=== PATIENT | male | born 1960 | race American Indian/Alaskan Native ===

== ENCOUNTER 2020-12-31 13:29 | Emergency (ER) | payer MEDICARE ==
[2020-12-31 14:32] LABS: Basophils # (Auto) 0.1 K/mm3 (0.0-0.1); Basophils % (Auto) 0.7 % (0.0-1.8); Eosinophils # (Auto) 0.2 K/mm3 (0.0-0.4); Hematocrit 42.5 % (35.5-45.6); Lymphocytes # (Auto) 2.6 K/mm3 (1.2-5.4); Lymphocytes % (Auto) 23.5 % (13.4-35.0); Mean Corpuscular HGB Conc 33 % (32-34); Mean Corpuscular Volume 88 fl (84-94); Monocytes # (Auto) 0.7 K/mm3 (0.0-0.8); Monocytes % (Auto) 6.8 % (0.0-7.3); Platelet Count 247 K/mm3 (140-440); Red Blood Count 4.83 M/mm3 (3.65-5.03); Red Cell Distribution Width 13.5 % (13.2-15.2)
[2020-12-31 14:46] LABS: Blood Urea Nitrogen 10 mg/dL (9-20); Calcium 8.7 mg/dL (8.4-10.2); Hemolysis Index 2
--- NOTE | 2020-12-31 14:53 | XRay Report ---
XR chest 1V ap INDICATION / CLINICAL INFORMATION: chest pain. COMPARISON: 11/22/2014 FINDINGS: SUPPORT DEVICES: None. HEART /PULMONARY VASCULATURE: No significant abnormality. LUNGS / PLEURA: No significant pulmonary or pleural abnormality. No pneumothorax. ADDITIONAL FINDINGS: No significant additional findings. IMPRESSION: 1. No acute findings. Signer Name: Gómez Reilly MD Signed: 12/31/2020 2:49 PM Workstation Name: [id number]
--- NOTE | 2020-12-31 14:56 | Emergency Department Report ---
ED Dizziness HPI - General Chief Complaint: Dizziness Stated Complaint: DIZZY Time Seen by Provider: 12/31/20 13:59 Source: patient Mode of arrival: Ambulatory Limitations: No Limitations - History of Present Illness Initial Comments: Chief complaint: I was dizzy this morning nontoxic my insulin." HPI: This is a 60-year-old male with history of insulin-dependent diabetes, hepatitis C, hypertension, CAD who presents with dizziness and feeling "funny" in chest. Patient had dizziness this morning. [place] lightheaded. Lasted about 30 minutes until he took his insulin. He does not take his blood sugar readings on a regular basis. He did not know how high his blood sugar was. He admits to noncompliance with diabetic diet. Patient denies any pain. However he informed triage nurse that he felt "funny" in his chest. He is currently symptom-free. MD Complaint: dizziness, lightheadedness -: Gradual, This morning Timing: gradual onset Description: lightheadedness History of Same: No History of Trauma: No Severity: mild Improves With: medication (Insulin) Worsens With: nothing - Related Data Previous Rx's Medication Instructions Recorded Last Taken Type Azithromycin [Zithromax Z-PRADEEP] 250 mg PO DAILY #6 tablet 04/22/15 Unknown Rx Benzonatate [Tessalon Perles] 100 mg PO Q8HR #20 capsule 04/22/15 Unknown Rx guaiFENesin/CODEINE [Robitussin AC] 5 ml PO HS 7 Days oral.liqd 04/22/15 Unknown Rx Indomethacin [Indocin] 25 mg PO TID #15 capsule 07/13/15 Unknown Rx Allergies Allergy/AdvReac Type Severity Reaction Status Date / Time No Known Allergies Allergy Unverified 04/22/15 12:26 ED Review of Systems ROS: Stated complaint: DIZZY Other details as noted in HPI Comment: All other systems reviewed and negative Constitutional: denies: fever, malaise Respiratory: denies: cough, shortness of breath Cardiovascular: denies: chest pain Gastrointestinal: denies: abdominal pain, vomiting ED Past Medical Hx - Past Medical History Hx Hypertension: Yes Hx Diabetes: Yes Hx Liver Disease: Yes (Hep c) Additional medical history: Coronary artery disease - Surgical History Additional Surgical History: "knee surgery". Heart surgery - Social History Smoking Status: Current Every Day Smoker - Medications Home Medications: Home Medications Medication Instructions Recorded Confirmed Last Taken Type Azithromycin [Zithromax Z-PRADEEP] 250 mg PO DAILY #6 tablet 04/22/15 Unknown Rx Benzonatate [Tessalon Perles] 100 mg PO Q8HR #20 capsule 04/22/15 Unknown Rx guaiFENesin/CODEINE [Robitussin AC] 5 ml PO HS 7 Days oral.liqd 04/22/15 Unknown Rx Indomethacin [Indocin] 25 mg PO TID #15 capsule 07/13/15 Unknown Rx ED Physical Exam - General Limitations: No Limitations General appearance: alert, in no apparent distress - Head Head exam: Present: atraumatic, normocephalic - Eye Eye exam: Present: normal appearance - ENT ENT exam: Present: mucous membranes moist - Neck Neck exam: Present: normal inspection, full ROM - Respiratory Respiratory exam: Present: normal lung sounds bilaterally. Absent: respiratory distress, wheezes, rales, rhonchi - Cardiovascular Cardiovascular Exam: Present: regular rate, normal rhythm, normal heart sounds. Absent: systolic murmur, diastolic murmur, rubs, gallop - GI/Abdominal GI/Abdominal exam: Present: soft, normal bowel sounds. Absent: distended, tenderness, guarding, rebound - Rectal Rectal exam: Present: deferred - Extremities Exam Extremities exam: Present: normal inspection - Back Exam Back exam: Present: normal inspection - Neurological Exam Neurological exam: Present: alert, oriented X3 - Psychiatric Psychiatric exam: Present: normal affect, normal mood - Skin Skin exam: Present: warm, dry, intact, normal color. Absent: rash ED Course Vital Signs 12/31/20 12/31/20 12/31/20 13:47 15:37 15:45 Temperature 98.1 F Pulse Rate 87 Respiratory 18 Rate Blood Pressure 155/70 142/56 O2 Sat by Pulse 100 97 98 Oximetry 12/31/20 12/31/20 16:01 16:15 Temperature Pulse Rate Respiratory Rate Blood Pressure 142/56 129/55 O2 Sat by Pulse 99 97 Oximetry ED Medical Decision Making - Lab Data Result diagrams: 12/31/20 14:13 12/31/20 14:13 Laboratory Results - last 24 hr 12/31/20 12/31/20 12/31/20 14:13 14:13 14:13 WBC 10.9 RBC 4.83 Hgb 14.0 Hct 42.5 MCV 88 MCH 29 MCHC 33 RDW 13.5 Plt Count 247 Lymph % (Auto) 23.5 [place] % (Auto) 6.8 Eos % (Auto) 2.0 Baso % (Auto) 0.7 Lymph # (Auto) 2.6 [place] # (Auto) 0.7 Eos # (Auto) 0.2 Baso # (Auto) 0.1 Seg Neutrophils % 67.0 Seg Neutrophils # 7.3 Sodium 134 L Potassium 3.8 Chloride 99.1 Carbon Dioxide 27 Anion Gap 12 BUN 10 Creatinine 0.7 L Estimated GFR > 60 BUN/Creatinine Ratio 14 Glucose 272 H Calcium 8.7 Troponin T < 0.010 12/31/20 15:50 WBC RBC Hgb Hct MCV MCH MCHC RDW Plt Count Lymph % (Auto) [place] % (Auto) Eos % (Auto) Baso % (Auto) Lymph # (Auto) [place] # (Auto) Eos # (Auto) Baso # (Auto) Seg Neutrophils % Seg Neutrophils # Sodium Potassium Chloride Carbon Dioxide Anion Gap BUN Creatinine Estimated GFR BUN/Creatinine Ratio Glucose Calcium Troponin T < 0.010 - EKG Data -: EKG Interpreted by Sd EKG shows normal: sinus rhythm, axis, intervals, QRS complexes, ST-T waves Rate: normal - EKG Data Interpretation: normal EKG 12/31/20 15:19 EKG obtained EKG interpreted by sd Normal sinus rhythm normal rate normal axis normal intervals no ST elevation no ST-T signs of ischemia normal EKG rate 80 bpm - Radiology Data Radiology results: report reviewed CBC chemistry within normal limits with exception of glucose 272 no evidence of DKA - Medical Decision Making 1. Dizziness lightheadedness for 30 minutes: No evidence of anemia or ACS. Hyperglycemia could be etiology since patient symptoms improved with insulin. No indication of CVA. 2. According to review of triage documentation patient felt "funny" in his chest. He denies chest pain. Heart score 3, I do not suspect acute coronary syndrome. Patient had troponin x 2. EKG normal. Patient referred to [facility] for outpatient cardiac follow-up. Patient has been symptom-free throughout his 4-hour ED observation period. On upon reassessment at discharge he is sleeping comfortably. I have faxed cardiology referral request to [facility]. Critical care attestation.: If time is entered above; I have spent that time in minutes in the direct care of this critically ill patient, excluding procedure time. ED Disposition Clinical Impression: Lightheadedness, Chest discomfort, Insulin dependent diabetes mellitus Disposition: - TO HOME OR SELFCARE Is pt being admited?: No Does the pt Need Aspirin: No Condition: Stable Instructions: Diabetes Mellitus Type 2 in Adults (ED), Dizziness, [id number] Referrals: DESMOND UDMONT MD [Staff Physician] - 3-5 Days HEART Score - HEART Score History: Slightly suspicious EKG: Normal Age: 45-65 Risk factors: > 3 risk factors or hx of atherosclerotic disease Troponin: Troponin T < 0.010 ng/mL (0.00-0.029) 12/31/20 15:50 Troponin: < normal limit HEART Score: 3
[2020-12-31 14:59] LABS: BUN/Creatinine Ratio 14
[2020-12-31 18:03] VITALS: BP 128/56
== END 2020-12-31 18:14 | disposition home or self-care (01) ==
LOC: ED 13:29
DX: R42 Dizziness and giddiness (principal); R07.89 Other chest pain; I10 Essential (primary) hypertension; E11.9 Type 2 diabetes mellitus without complications; F17.200 Nicotine dependence, unspecified, uncomplicated; Z79.4 Long term (current) use of insulin; Z98.890 Other specified postprocedural states; Z79.2 Long term (current) use of antibiotics; Z79.899 Other long term (current) drug therapy
CPT/HCPCS: 36415; 71045; 80048; 84484; 85025; 93005

== ENCOUNTER 2021-05-16 11:30 | Emergency (ER) | payer MEDICARE ==
--- NOTE | 2021-05-16 12:48 | Emergency Department Report ---
ED Back Pain/Injury HPI - General Chief Complaint: Back Pain/Injury Stated Complaint: BACK PAIN Time Seen by Provider: 05/16/21 12:44 Source: patient, EMS Limitations: No Limitations - History of Present Illness Initial Comments: 60-year-old -Turkish male with a history of hep C, CAD, back pain, knee pain presents to the emergency room complaining of back pain that radiates down his right leg with a history of sciatic nerve. Patient comes from a [facility]. Patient denies any new injury. Patient states that he takes tramadol and Neurontin at as prescribed by his provider. Patient reports he was seen in the ER 4 days ago. He denies any urinary or bowel incontinent. MD Complaint: back pain Onset/Timin -: week(s) Similar Symptoms Previously: Yes Radiation: right leg Severity scale (0 -10): 9 Quality: burning, sharp Consistency: intermittent Improves With: none Worsens With: none Associated Symptoms: denies other symptoms Treatments Prior to Arrival: prescription analgesics, other medications (Neurontin) - Related Data Previous Rx's Medication Instructions Recorded Last Taken Type Azithromycin [Zithromax Z-PRADEEP] 250 mg PO DAILY #6 tablet 04/22/15 Unknown Rx Benzonatate [Tessalon Perles] 100 mg PO Q8HR #20 capsule 04/22/15 Unknown Rx guaiFENesin/CODEINE [Robitussin AC] 5 ml PO HS 7 Days oral.liqd 04/22/15 Unknown Rx Indomethacin [Indocin] 25 mg PO TID #15 capsule 07/13/15 Unknown Rx Allergies Allergy/AdvReac Type Severity Reaction Status Date / Time No Known Allergies Allergy Unverified 04/22/15 12:26 ED Review of Systems ROS: Stated complaint: BACK PAIN Other details as noted in HPI Comment: All other systems reviewed and negative ED Past Medical Hx - Past Medical History Previous Medical History?: Yes Hx Hypertension: Yes Hx Diabetes: Yes Hx Liver Disease: Yes (Hep c) Additional medical history: Coronary artery disease, Back pain - Surgical History Past Surgical History?: Yes Additional Surgical History: "knee surgery". Heart surgery - Social History Smoking Status: Current Every Day Smoker - Medications Home Medications: Home Medications Medication Instructions Recorded Confirmed Last Taken Type Azithromycin [Zithromax Z-PRADEEP] 250 mg PO DAILY #6 tablet 04/22/15 Unknown Rx Benzonatate [Tessalon Perles] 100 mg PO Q8HR #20 capsule 04/22/15 Unknown Rx guaiFENesin/CODEINE [Robitussin AC] 5 ml PO HS 7 Days oral.liqd 04/22/15 Unknown Rx Indomethacin [Indocin] 25 mg PO TID #15 capsule 07/13/15 Unknown Rx ED Physical Exam - General Limitations: No Limitations General appearance: alert, in no apparent distress - Head Head exam: Present: atraumatic, normocephalic - Eye Eye exam: Present: normal appearance - ENT ENT exam: Present: mucous membranes moist - Neck Neck exam: Present: normal inspection - Respiratory Respiratory exam: Present: normal lung sounds bilaterally. Absent: respiratory distress - Cardiovascular Cardiovascular Exam: Present: regular rate, normal rhythm. Absent: systolic murmur, diastolic murmur, rubs, gallop - GI/Abdominal GI/Abdominal exam: Present: soft, normal bowel sounds - Rectal Rectal exam: Present: deferred - Extremities Exam Extremities exam: Present: normal inspection - Back Exam Back exam: Present: normal inspection, full ROM - Expanded Back Exam Expanded Back exam: Sciatic Notch Tenderness: Right - Neurological Exam Neurological exam: Present: alert, oriented X3, normal gait - Psychiatric Psychiatric exam: Present: normal affect, normal mood - Skin Skin exam: Present: warm, dry, intact, normal color. Absent: rash ED Course Vital Signs 05/16/21 12:03 Temperature 98.5 F Pulse Rate 69 Respiratory 20 Rate Blood Pressure 149/65 O2 Sat by Pulse 100 Oximetry ED Medical Decision Making - Medical Decision Making 60-year-old -Turkish male with a history of hep C, CAD, back pain, knee pain presents to the emergency room complaining of back pain that radiates down his right leg with a history of sciatic nerve. Patient comes from a [facility]. Patient denies any new injury. Patient states that he takes tramadol and Neurontin at as prescribed by his provider. Patient reports he was seen in the ER 4 days ago. He denies any urinary or bowel incontinent. [facility] shows patient gets his tramadol from Dr.Ngozi Conner last filled on 04/21/2021. Discussed with patient that this is chronic back pain that he is currently on pain medications that he will need to continue with his provider. Critical care attestation.: If time is entered above; I have spent that time in minutes in the direct care of this critically ill patient, excluding procedure time. ED Disposition Clinical Impression: Chronic pain, Chronic back pain Disposition: DC- TO HOME OR SELFCARE Is pt being admited?: No Does the pt Need Aspirin: No Condition: Stable Instructions: Chronic Pain, Adult Additional Instructions: Continue with your chronic pain medications from your doctor. You can incorporate some Tylenol or ibuprofen. Do some sciatica stretches. Referrals: Madie Howe [Other] - 3-5 Days Forms: Work/School Release Form(ED)
== END 2021-05-16 13:05 | disposition home or self-care (01) ==
LOC: ED 11:30
CPT/HCPCS: 99283